=== PATIENT | female | born 1975 | race Caucasian/White ===

== ENCOUNTER 2019-04-24 17:28 | Emergency (ER) | payer MEDICARE, MEDICAID ==
[~2019-04-24] VITALS: Ht 160 cm; Wt 86.6 kg
[2019-04-24 18:06] LABS: HEMATOCRIT 39.5 % (37.0-47.0); HEMOGLOBIN 13.3 g/dl (12.0-16.0); IMMATURE GRANULOCYTES 0.3 % (0.0-5.0); MEAN CELL VOLUME 91.9 fL CALC (80.0-100.0); MEAN CORPUSCULAR HGB 30.9 pG CALC (26.0-32.0); MEAN CORPUSCULAR HGB CONC 33.7 g/L CALC (32.0-36.0); NEUT# 6.03 thou/uL (2.00-7.15); RED BLOOD COUNT 4.3 mill/uL (4.20-5.60); RED CELL DISTRI WIDTH 12.4 % (11.5-15.5)
[2019-04-24 18:21] LABS: ANION GAP 16 (6-22 (CALC)); BUN 14 mg/dL (7-17); BUN/CREATININE RATIO 12 (12-20 (CALC)); CARBON DIOXIDE 18 mmol/l (22-30); CHLORIDE 109 mmol/l (95-108); CREATININE 1.1 mg/dL (0.5-1.0); GFR 54 ML/MIN (>=60 (CALC)); GFR FOR AFR.AMER. > 60 ML/MIN (>=60 (CALC)); SODIUM 139 mmol/l (137-146)
[2019-04-24] MEDS ORDERED: PREDNISONE50 MG PO (18:22)
[2019-04-24] MEDS ORDERED: EPIPEN 2-P0.3 MG/0.3 IM (18:22)
[2019-04-24] MEDS ORDERED: CLINDAMYCIN300 M1 PO (18:41)
[2019-04-24 18:42] VITALS: BP 127/72
== END 2019-04-24 20:56 | disposition home or self-care (01) ==
LOC: ED 17:28
PROVIDERS: Family Medicine
DX: R06.02 Shortness of breath (principal); R07.9 Chest pain, unspecified; T36.0X5A Adverse effect of penicillins, initial encounter

== ENCOUNTER 2019-08-02 22:17 | Inpatient (IN) | payer MEDICARE, MEDICAID ==
[~2019-08-02] VITALS: Ht 162.6 cm; Wt 86.0 kg
[~2019-08-02 22:17] MED LIST: CLINDAMYCIN300 M1 PO; EPIPEN 2-P0.3 MG/0.3 IM; PREDNISONE50 MG PO
[2019-08-02 23:11] LABS: HEMATOCRIT 40.4 % (37.0-47.0); HEMOGLOBIN 13.7 g/dl (12.0-16.0); IMMATURE GRANULOCYTES 0.3 % (0.0-5.0); MEAN CELL VOLUME 92.7 fL CALC (80.0-100.0); MEAN CORPUSCULAR HGB 31.4 pG CALC (26.0-32.0); MEAN CORPUSCULAR HGB CONC 33.9 g/L CALC (32.0-36.0); NEUT# 11.14 thou/uL (2.00-7.15); RED BLOOD COUNT 4.36 mill/uL (4.20-5.60); RED CELL DISTRI WIDTH 12.2 % (11.5-15.5)
[2019-08-02 23:26] LABS: URINE BILIRUBIN - DIPSTICK NEGATIVE (NEGATIVE); URINE BLOOD DIPSTICK LARGE (NEGATIVE); URINE COLOR YELLOW; URINE GLUCOSE - DIPSTICK NEGATIVE (NEGATIVE); URINE KETONE NEGATIVE (NEGATIVE); URINE NITRITE - DIPSTICK NEGATIVE (Negative); URINE PH 6.5 (4.5-8.0); URINE PROTEIN - DIPSTICK NEGATIVE (NEG-TRACE); URINE SPECIFIC GRAVITY >=1.030; URINE UROBILINOGEN - DIPSTICK 0.2 E.U./dL (0.2)
[2019-08-02 23:32] LABS: URINE LEUK ESTERASE NEGATIVE (NEGATIVE)
[2019-08-02 23:33] LABS: URINE EPITHELIAL CELLS MANY EPI/hpf (0-FEW); URINE RBC 50-100 RBC/hpf (0-5)
[2019-08-02 23:34] LABS: URINE BACTERIA MODERATE hpf
[2019-08-02 23:38] LABS: ALBUMIN 4.2 g/dL (3.2-5.0); ALKALINE PHOSPHATASE 114 u/l (38-126); AMYLASE 101 u/l (30-110); BILIRUBIN, TOTAL 0.4 mg/dL (0.0-1.4); BUN 14 mg/dL (7-17); BUN/CREATININE RATIO 13 (12-20 (CALC)); CHLORIDE 103 mmol/l (95-108); GFR > 60 ML/MIN (>=60 (CALC)); GFR FOR AFR.AMER. > 60 ML/MIN (>=60 (CALC)); LIPASE 364 u/l (23-300); POTASSIUM 3.6 mmol/l (3.5-5.1); SGOT/AST 34 u/l (14-36); SODIUM 139 mmol/l (137-146); TOTAL PROTEIN 7.4 g/dL (6.3-8.2)
[2019-08-02 23:44] LABS: ANION GAP 16 (6-22 (CALC)); CARBON DIOXIDE 24 mmol/l (22-30)
[2019-08-03] VITALS (15 sets, daily range): BP systolic 80–136; BP diastolic 37–79
[2019-08-03] MEDS ORDERED: SEROQUEL XR300 MG PO (01:22)
[2019-08-03 05:30] LABS: ALKALINE PHOSPHATASE 85 u/l (38-126); ANION GAP 12 (6-22 (CALC)); BILIRUBIN, TOTAL 0.4 mg/dL (0.0-1.4); BUN 11 mg/dL (7-17); BUN/CREATININE RATIO 13 (12-20 (CALC)); CARBON DIOXIDE 24 mmol/l (22-30); CHLORIDE 107 mmol/l (95-108); CREATININE 0.9 mg/dL (0.5-1.0); GFR > 60 ML/MIN (>=60 (CALC)); GFR FOR AFR.AMER. > 60 ML/MIN (>=60 (CALC)); LIPASE 75 u/l (23-300); POTASSIUM 4.2 mmol/l (3.5-5.1); SGOT/AST 17 u/l (14-36); SODIUM 139 mmol/l (137-146)
[2019-08-03 05:31] LABS: ALBUMIN 3.1 g/dL (3.2-5.0); TOTAL PROTEIN 5.8 g/dL (6.3-8.2)
[2019-08-03 05:32] LABS: PROTHROMBIN TIME 10.7 SECONDS (9.0-12.5)
[2019-08-03] MEDS ORDERED: BUPROPION300 MG PO (10:44)
[2019-08-03] MEDS ORDERED: LAMOTRIGINE150 MG PO (10:53)
[2019-08-03] MEDS ORDERED: SODIUM BICARBI650 MG PO (10:55)
[2019-08-03] MEDS ORDERED: MAXALT-MLT10 MG PO (15:51)
[2019-08-03] MEDS ORDERED: FIBER SELECT GUMMIES PO (15:51)
[2019-08-03] MEDS ORDERED: EPIPEN 2-P0.3 MG/0.3 IM (15:53)
== END 2019-08-03 20:35 | disposition home or self-care (01) | DRG 343 ==
LOC: ED 22:17 → ED-I 08-03 00:10 → ED 08-03 00:34 → MS2 08-03 00:35
PROVIDERS: Emergency Medicine; ADMIT Surgery; ATTEND Surgery
PROC: 0DTJ4ZZ Resection of Appendix, Percutaneous Endoscopic Approach (ICD-10-PCS; principal; 2019-08-03)
DX: K35.80 Unspecified acute appendicitis (principal); N18.9 Chronic kidney disease, unspecified; F31.9 Bipolar disorder, unspecified; F17.200 Nicotine dependence, unspecified, uncomplicated
CPT/HCPCS: J1956; J2710

== ENCOUNTER 2022-06-19 20:21 | Emergency (ER) | payer MEDICARE, MEDICAID ==
[~2022-06-19] VITALS: Ht 162.6 cm; Wt 84.1 kg
[~2022-06-19 20:21] MED LIST changes: +BUPROPION300 MG PO; +FIBER SELECT GUMMIES PO; +LAMOTRIGINE150 MG PO; +MAXALT-MLT10 MG PO; +SEROQUEL XR300 MG PO; +SODIUM BICARBI650 MG PO
[2022-06-19 21:14] LABS: HEMATOCRIT 45.1 % (37.0-47.0); HEMOGLOBIN 15.1 g/dl (12.0-16.0); IMMATURE GRANULOCYTES 0.1 % (0.0-5.0); MEAN CELL VOLUME 94.4 fL CALC (80.0-100.0); MEAN CORPUSCULAR HGB 31.6 pG CALC (26.0-32.0); MEAN CORPUSCULAR HGB CONC 33.5 g/dL CAL (32.0-36.0); NEUT# 7.33 thou/uL (2.00-7.15); RED BLOOD COUNT 4.78 mill/uL (4.20-5.60)
[2022-06-19 21:20] LABS: URINE BILIRUBIN - DIPSTICK NEGATIVE (NEGATIVE); URINE BLOOD DIPSTICK MODERATE (NEGATIVE); URINE COLOR YELLOW; URINE GLUCOSE - DIPSTICK NEGATIVE (NEGATIVE); URINE KETONE NEGATIVE (NEGATIVE); URINE LEUK ESTERASE NEGATIVE (NEGATIVE); URINE PROTEIN - DIPSTICK NEGATIVE (NEG-TRACE); URINE UROBILINOGEN - DIPSTICK 0.2 E.U./dL (0.2)
[2022-06-19 21:22] LABS: URINE NITRITE - DIPSTICK NEGATIVE (Negative)
[2022-06-19 21:26] LABS: URINE BACTERIA FEW hpf; URINE SQUAMOUS EPITHELIAL CELL FEW EPI/hpf (0-FEW)
[2022-06-19 21:30] LABS: ALBUMIN 4.2 g/dL (3.2-5.0); ALKALINE PHOSPHATASE 80 u/l (38-126); ANION GAP 11 (6-22 (CALC)); BILIRUBIN, TOTAL 0.3 mg/dL (0.0-1.4); BUN 9 mg/dL (7-17); BUN/CREATININE RATIO 9 (12-20 (CALC)); CARBON DIOXIDE 26 mmol/l (22-30); CHLORIDE 105 mmol/l (95-108); CREATININE 1.1 mg/dL (0.5-1.0); GFR FOR AFR.AMER. > 60 ML/MIN (>=60 (CALC)); GFR OTHER RACES 53 ML/MIN (>=60 (CALC)); POTASSIUM 4.1 mmol/l (3.5-5.1); SGOT/AST 21 u/l (14-36); SODIUM 138 mmol/l (137-146); TOTAL PROTEIN 7.3 g/dL (6.3-8.2)
[2022-06-19] MEDS ORDERED: HALDOL1 M1 PO (21:39)
[2022-06-19 21:41] LABS: MYOGLOBIN 46 ng/mL (0 - 62)
[2022-06-19] MEDS ORDERED: ACETAMINOP160 MG/5 M PO (21:42)
[2022-06-19 22:12] VITALS: BP 133/68
[2022-06-19] MEDS ORDERED: NAPROXEN500 MG PO (22:18)
== END 2022-06-19 22:30 | disposition home or self-care (01) ==
LOC: ED 20:21
PROVIDERS: Emergency Medicine
DX: R07.89 Other chest pain (principal); F41.9 Anxiety disorder, unspecified; F43.10 Post-traumatic stress disorder, unspecified; F31.9 Bipolar disorder, unspecified; F17.210 Nicotine dependence, cigarettes, uncomplicated; Z20.822 Contact with and (suspected) exposure to COVID-19

== ENCOUNTER 2023-06-24 18:52 | Emergency (ER) | payer MEDICARE, MEDICAID ==
[~2023-06-24] VITALS: Ht 162.6 cm; Wt 81.6 kg
[~2023-06-24 18:52] MED LIST changes: +ACETAMINOP160 MG/5 M PO; +HALDOL1 M1 PO; +NAPROXEN500 MG PO
[2023-06-24 19:01] VITALS: BP 129/51
[2023-06-24] MEDS ORDERED: GABAPENTIN100 MG PO (19:14)
[2023-06-24] MEDS ORDERED: OMEPRAZOLE DR40 MG PO (19:14)
[2023-06-24] MEDS ORDERED: EZETIMIBE10 MG PO (19:15)
[2023-06-24] MEDS ORDERED: ROPINIROLE1 MG PO (19:16)
[2023-06-24 19:36] LABS: BASO% 0.5 % (0-3); EOS% 2.7 % (0-8); HEMATOCRIT 47.4 % (37.0-47.0); HEMOGLOBIN 15.9 g/dl (12.0-16.0); LYMPH% 22.9 % (15-41); MEAN CELL VOLUME 95.4 fL CALC (80.0-100.0); MEAN CORPUSCULAR HGB CONC 33.5 g/dL CAL (32.0-36.0); MONO% 10.6 % (2-13); NEUT# 5.08 thou/uL (2.00-7.15); NEUT% 63.3 % (42-76); RED BLOOD COUNT 4.97 mill/uL (4.20-5.60); RED CELL DISTRI WIDTH 11.9 % (11.5-15.5)
[2023-06-24 19:48] LABS: ALBUMIN 4.2 g/dL (3.2-5.0); ALKALINE PHOSPHATASE 81 u/l (38-126); ANION GAP 14 (6-22 (CALC)); BILIRUBIN, TOTAL 0.3 mg/dL (0.02-1.3); BUN 10 mg/dL (7-17); BUN/CREATININE RATIO 9 (12-20 (CALC)); CARBON DIOXIDE 24 mmol/l (22-30); CHLORIDE 104 mmol/l (95-108); CREATININE 1.1 mg/dL (0.5-1.0); GFR FOR AFR.AMER. > 60 ML/MIN (>=60 (CALC)); GFR OTHER RACES 53 ML/MIN (>=60 (CALC)); POTASSIUM 3.8 mmol/l (3.5-5.1); SGOT/AST 32 u/l (14-36); SODIUM 137 mmol/l (137-146); TOTAL PROTEIN 7.6 g/dL (6.3-8.2)
[2023-06-24 19:55] VITALS: BP 119/50
[2023-06-24 20:01] VITALS: BP 99/57
[2023-06-24] MEDS ORDERED: FIORICET PO (20:12)
[2023-06-24 20:15] VITALS: BP 122/52
[2023-06-24 20:30] VITALS: BP 131/63
[2023-06-24 20:37] VITALS: BP 122/52
== END 2023-06-24 20:37 | disposition home or self-care (01) ==
LOC: ED 18:52
PROVIDERS: Nurse Practitioner
DX: R51.9 Headache, unspecified (principal); F31.9 Bipolar disorder, unspecified; F17.200 Nicotine dependence, unspecified, uncomplicated

== ENCOUNTER 2024-06-20 15:20 | Emergency (ER) | payer MEDICARE, MEDICAID ==
[~2024-06-20] VITALS: Ht 162.6 cm; Wt 74.4 kg
[~2024-06-20 15:20] MED LIST changes: +EZETIMIBE10 MG PO; +FIORICET PO; +GABAPENTIN100 MG PO; +OMEPRAZOLE DR40 MG PO; +ROPINIROLE1 MG PO
[2024-06-20 15:49] VITALS: BP 110/51
[2024-06-20 16:00] VITALS: BP 114/60
[2024-06-20] MEDS ORDERED: KETOROLAC TROMETHAMINE 30 MG/ML SDV IM ONE (16:05)
[2024-06-20 16:15] VITALS: BP 95/58
[2024-06-20] MEDS ORDERED: FAMOTIDINE 20 MG/TAB PO ONE (16:20)
[2024-06-20 16:30] VITALS: BP 105/58
[2024-06-20 16:45] VITALS: BP 112/63
[2024-06-20] MEDS ORDERED: NAPROXEN500 MG PO (16:46)
[2024-06-20 17:00] VITALS: BP 119/78
== END 2024-06-20 17:02 | disposition home or self-care (01) ==
LOC: ED 15:20
DX: S46.911A Strain of unspecified muscle, fascia and tendon at shoulder and upper arm level, right arm, initial encounter (principal); F17.200 Nicotine dependence, unspecified, uncomplicated; X58.XXXA Exposure to other specified factors, initial encounter; Z98.890 Other specified postprocedural states

== ENCOUNTER 2024-08-13 10:07 | Day surgery (SDC) | payer MEDICARE, MEDICAID ==
[~2024-08-13] VITALS: Ht 160 cm; Wt 70.8 kg
[~2024-08-13 10:07] MED LIST changes: +ATIVAN1 M1 PO; +BUPROPION HYDR PO; -BUPROPION300 MG PO; +DEXILANT30 MG PO; +IBUPROFEN200 MG PO; +MG GLUCONATE250 MG PO; +TRAZODONE300 MG PO
[2024-08-13] MEDS ORDERED: FAMOTIDINE 10MG/ML 2ML SDV IV ONE (10:37)
[2024-08-13] MEDS ORDERED: LACTATED RINGER'S 1,000 ML IV ONE (10:37)
[2024-08-13 13:05] VITALS: BP 100/68
[2024-08-13] MEDS ORDERED: PROPOFOL 200 MG/20 ML VIAL IV ONE (15:42)
[2024-08-13] MEDS ORDERED: LIDOCAINE HCL 2% 2ML SDV IV ONE (15:42)
[2024-08-13] MEDS ORDERED: GLYCOPYRROLATE 0.2 MG/ML IV ONE (15:42)
== END 2024-08-13 13:50 | disposition home or self-care (01) ==
LOC: ENDO 10:07
PROVIDERS: ATTEND Internal Medicine Gastroenterology
PROC: 0DBK8ZX Excision of Ascending Colon, Via Natural or Artificial Opening Endoscopic, Diagnostic (ICD-10-PCS; principal; 2024-08-13)
PROC: 0DBG8ZX Excision of Left Large Intestine, Via Natural or Artificial Opening Endoscopic, Diagnostic (ICD-10-PCS; 2024-08-13)
PROC: 0DB98ZX Excision of Duodenum, Via Natural or Artificial Opening Endoscopic, Diagnostic (ICD-10-PCS; 2024-08-13)
PROC: 0DB78ZX Excision of Stomach, Pylorus, Via Natural or Artificial Opening Endoscopic, Diagnostic (ICD-10-PCS; 2024-08-13)
DX: K31.89 Other diseases of stomach and duodenum (principal); K44.9 Diaphragmatic hernia without obstruction or gangrene; K21.9 Gastro-esophageal reflux disease without esophagitis; D12.2 Benign neoplasm of ascending colon; K64.8 Other hemorrhoids; J45.909 Unspecified asthma, uncomplicated; E78.5 Hyperlipidemia, unspecified; N18.2 Chronic kidney disease, stage 2 (mild); F17.200 Nicotine dependence, unspecified, uncomplicated; Z79.899 Other long term (current) drug therapy

== ENCOUNTER 2024-08-19 15:22 | Emergency (ER) | payer MEDICARE, MEDICAID ==
[~2024-08-19] VITALS: Ht 160 cm; Wt 56.6 kg
[2024-08-19 15:49] VITALS: BP 122/62
[2024-08-19] MEDS ORDERED: IBUPROFEN 600 MG/TAB PO ONE (15:50)
[2024-08-19] MEDS ORDERED: IBUPROFEN600 MG PO (15:52)
[2024-08-19 16:00] VITALS: BP 116/59
[2024-08-19 16:15] VITALS: BP 116/59
== END 2024-08-19 16:16 | disposition home or self-care (01) ==
LOC: ED 15:22
DX: S90.31XA Contusion of right foot, initial encounter (principal); W20.8XXA Other cause of strike by thrown, projected or falling object, initial encounter